=== PATIENT | female | born 1965 | race Caucasian/White ===

== ENCOUNTER 2017-08-11 09:33 | Emergency (ER) | payer BC, OTHER ==
[~2017-08-11] VITALS: Ht 154.9 cm; Wt 126.0 kg
[~2017-08-11 09:33] MED LIST: AZIT250T94 PO; HYDR-3498 PO; IBUP-1542 PO; IBUP800T25 PO; NPH10OT RIGHT EAR; UDPVCC PO; theraflu; tylenol
[2017-08-11 09:44] VITALS: Ht 154.9 cm; Wt 126.0 kg
[2017-08-11 11:58] LABS: ADD UMIC YES; UR ASCORBIC ACID NEGATIVE (NEGATIVE); UR BACTERIA FEW /HPF (NONE SEEN); UR BILIRUBIN (Dip) NEGATIVE (NEGATIVE); UR BLOOD (Dip) 1+ mg/dL (NEGATIVE); UR CLARITY CLEAR (CLEAR); UR COLOR YELLOW (YELLOW); UR GLUCOSE (Dip) NEGATIVE (NEGATIVE); UR KETONES (Dip) NEGATIVE (NEGATIVE); UR LEUKOCYTE ESTERASE (Dip) 1+ Leu/ul (NEGATIVE); UR NITRITE (Dip) POSITIVE (NEGATIVE); UR RBC 2 /HPF (0-5); UR SPECIFIC GRAVITY (Dip) 1.019 (1.003-1.030); UR TOTAL PROTEIN (Dip) NEGATIVE (NEGATIVE); UR UROBILINOGEN (Dip) NEGATIVE (NEGATIVE)
--- NOTE | 2017-08-11 12:17 | ERD ---
ER Documentation Chief Complaint Chief Complaint LUMP ON NIPPLE, CHEST WALL PAIN, SOB, ABD PAIN, PELVIC PAIN HPI 52-year-old female presents to the emergency department complaining of chest pain, for the last 5 days, reproducible by palpation and movement, constant, dull, 4 out of 10. No palpitations, no shortness of breath. No history of CAD. The patient is also complaining of diffuse, mild pelvic pain, associated with increased urinary frequency and malodorous urine. Denies fevers, chills, no nausea no vomiting. She is also complaining of the right breast pain for the last 6 weeks, located in the areolar area, denies nipple discharge, no history of trauma. ROS All systems reviewed and are negative except as per history of present illness. Medications Home Meds Active Scripts Hydrocodone/Acetaminophen ([place] 5-325 Tablet) 1 Each Tablet, 1 TAB PO Q6H Y for PAIN, #7 TAB Prov:SALVADOR BECK MD 08/11/17 Ciprofloxacin Hcl* (Ciprofloxacin Hcl*) 500 Mg Tablet, 250 MG PO BID for 7 Days , TAB Prov:SALVADOR BECK MD 08/11/17 Neomycin/Polymyxin/Hydrocort* (Cortisporin* Otic) 10 Ml Susp, 4 DROP RIGHT EAR QID for 7 Days, EA Prov:MASSIEL WAGNER DO 12/06/15 Hydrocodone Bit-Acetaminophen* ([place]*) 5-325 Mg Tab, 1 TAB PO Q6 Y for PAIN, # 7 TAB Prov:MASSIEL WAGNER DO 12/06/15 Ibuprofen* (Motrin*) 600 Mg Tab, 600 MG PO Q8, #10 TAB Prov:MASSIEL WAGNER DO 12/06/15 Ibuprofen* (Motrin*) 800 Mg Tab, 800 MG PO Q6H Y for PAIN AND OR ELEVATED TEMP, #30 TAB Prov:PRICILA BRUCE NP 10/28/15 Phenylephrine Qbb-Utjdyjt-Etnbzpbhhfbr* (Promethazine VC Codeine* Syrup) 120 Ml Syrup, 5 ML PO Q6 Y for COUGH, #6 OZ Prov:RASTA PATRICK PA-C 04/11/15 Azithromycin* (Zithromax*) 250 Mg Tablet, 250 MG PO .KEN DIRECTED, #6 TAB TAKE 500 MG (2 TABS) THE FIRST DAY THEN 250 MG (1 TAB) DAYS 2-5 Prov:RASTA PATRICK PA-C 04/11/15 Reported Medications [tylenol] No Conflict Check 09/30/11 [theraflu] No Conflict Check 09/30/11 Allergies Allergies: Coded Allergies: Penicillins (Verified Allergy, Unknown, MINIMAL RASH, 12/06/15) PMhx/Soc History of Surgery: No (removal of abdominal tumor) Anesthesia Reaction: No Hx Neurological Disorder: No Hx Respiratory Disorders: Yes (asthma) Hx Cardiac Disorders: Yes (HTN; cardiomegaly) Hx Psychiatric Problems: No Hx Miscellaneous Medical Probl: No Hx Alcohol Use: No Hx Substance Use: No Hx Tobacco Use: No Physical Exam Vitals Vital Signs Date Time Temp Pulse Resp B/P Pulse Ox O2 Delivery O2 Flow Rate FiO2 08/11/17 09:44 98.5 81 16 152/77 93 Physical Exam Head: Atraumatic Eyes: Normal Conjunctiva ENT: Normal External Ears, Nose and Mouth. Neck: Full range of motion..~ No meningismus. Resp: Clear to auscultation bilaterally Breast: Right breast with retroareolar induration, and tenderness with palpation. No nipple discharge, no skin discoloration, no masses. Left breast: Normal skin, no nipple discharge, no masses Cardio: Regular rate and rhythm, no murmurs. Chest wall tenderness over the left side Abd: Soft, non tender Results 24 hrs Laboratory Tests Test 08/11/17 11:20 Urine Color YELLOW Urine Clarity CLEAR Urine pH 5.0 Urine Specific Addy 1.019 Urine Ketones NEGATIVEmg/dL Urine Nitrite POSITIVEmg/dL Urine Bilirubin NEGATIVEmg/dL Urine Urobilinogen NEGATIVEmg/dL Urine Leukocyte Esterase 1+Karen/ul Urine Microscopic RBC 2/HPF Urine Microscopic WBC 20/HPF Urine Bacteria FEW/HPF Urine Hemoglobin 1+mg/dL Urine Glucose NEGATIVEmg/dL Urine Total Protein NEGATIVEmg/dl Procedures/MDM 52-year-old female with multiple medical problems presents with: 1. Chest pain: No suspicion for acute coronary event, electrocardiogram was requested that showed normal sinus rhythm, normal intervals, no ST elevations, no T-wave inversion. CXR: Prominent cardiac silhouette and mild vascular congestion. The pain is reproducible by palpation and movement, most likely musculoskeletal. 2. Abdominal pain: Differential diagnoses includes appendicitis, colitis, UTI, diverticulitis. Physical examination showed a benign abdomen without peritoneal signs, no suspicion for acute abdomen. UA consistent with urinary tract infection without pyelonephritis. 3. Breast pain: Breast US: Prelim report: 0.5 cm hand leather trimmer benign at 9:00 position rest is neg. Results and medical impression discussed with patient, the patient will be DC home with a Rx for antibiotics for UTI and 3 days supply of [place] for pain. If symptoms persist, worsen or new symptoms develop, then patient is instructed to follow-up with the primary care provider. If the patient is unable to see the primary care provider, then return to the ED as needed. Departure Diagnosis: Primary Impression: UTI (urinary tract infection) Additional Impression: Breast pain in female Condition: Stable Patient Instructions: Breast Exam, Clinical, Understanding Urinary Tract Infections (UTIs) Additional Instructions: Thank you very much for allowing us to participate in your care. It was a pleasure seen you today here at [facility]. Please schedule a follow up appointment with your primary doctor in 2 days and bring all the information and prescriptions that we have given to you today. If the doctor is unavailable and the symptoms persist or worsen, the patient should return to the hospital immediately. SALVADOR BECK MD Aug 11, 2017 12:16
[2017-08-11] MEDS ORDERED: CIPR500T4 PO (13:34)
[2017-08-11] MEDS ORDERED: HYDR-906 PO (13:34)
--- NOTE | 2017-08-11 15:31 | RADRPT ---
PROCEDURE: XR Chest. CLINICAL INDICATION: Chest pain. TECHNIQUE: Two views. Frontal and lateral. COMPARISON: 08/28/2013. FINDINGS: There is interstitial disease bilaterally consistent with pulmonary edema. The lungs are otherwise c lear. The heart is enlarged. There is no pleural effusion. There is no pneumothorax. IMPRESSION: 1. Mild pulmonary edema. 2. Cardiomegaly. 3. No change from 08/28/2013. RPTAT: QQ .Husam Clarke MD, MD Date Time Electronically viewed and signed by .Husam Clarke MD, MD on 08/11/2017 15:31 .R/
--- NOTE | 2017-08-11 15:45 | RADRPT ---
PROCEDURE: Right breast ultrasound. CLINICAL INDICATION: Right breast pain. Right nipple induration. TECHNIQUE: High-resolution sonography of the right breast was performed in the axial and sagittal planes. COMPARISON: No prior study is available for comparison. FINDINGS: There is a benign 0.5 cm cystic nodule in the 9 o'clock position of the right breast. There is no ot her cystic or solid mass. Normal breast parenchyma is present. IMPRESSION: 1. Benign 0.5 cm cystic nodule in the 9 o'clock position of the right breast. 2. Otherwise normal right breast ultrasound. 3. Any further management regarding any breast symptoms should be based upon clinical grounds. 4. Mammography is advised. RPTAT: QQ .Husam Clarke MD, MD Date Time Electronically viewed and signed by .Husam Clarke MD, on 08/11/2017 15:45 .R/
== END 2017-08-11 13:46 | disposition home or self-care (01) ==
LOC: FTE 09:33
DX: N39.0 Urinary tract infection, site not specified (principal); N64.4 Mastodynia; J45.909 Unspecified asthma, uncomplicated; I10 Essential (primary) hypertension
CPT/HCPCS: 71020; 76642; 81001; 93005; Z7502

== ENCOUNTER 2018-01-03 16:21 | Emergency (ER) | END 2018-01-03 21:40 | disposition home or self-care (01) ==

== ENCOUNTER 2018-01-15 16:25 | Emergency (ER) | END 2018-01-15 19:33 | disposition home or self-care (01) ==

== ENCOUNTER 2018-07-12 10:05 | Emergency (ER) | END 2018-07-12 12:57 | disposition home or self-care (01) ==

== ENCOUNTER 2018-10-03 23:01 | Emergency (ER) | END 2018-10-04 04:01 | disposition home or self-care (01) ==

== ENCOUNTER 2019-03-07 16:50 | Emergency (ER) | payer OTHER ==
[~2019-03-07] VITALS: Ht 154.9 cm; Wt 120.0 kg
[~2019-03-07 16:50] MED LIST changes: +ACET500C5 PO; +ALBU8.5H8 INH; +AZIT250T PO; -AZIT250T94 PO; +BENZ-6 PO; +CETI10CA PO; +CIPR500T4 PO; +DOXY100T20 PO; +GUAI473L22 PO; +HYDR-4011 PO; +IBUP-1561 PO; -IBUP800T25 PO; +IBUP800T48 PO; +OFLO5DRO7 BOTH EARS; +PRED20TA PO; +PROM6.2515 PO
[2019-03-07 16:55] VITALS: Ht 154.9 cm; Wt 120.0 kg
--- NOTE | 2019-03-07 17:17 | ERD ---
ER Documentation Chief Complaint Chief Complaint SOB X 2 DAYS. HPI The patient is a 53-year-old female, presenting to the ER because of acute on chronic low back pain/constipation and dysuria for 2 days she also complains of somewhat dyspnea for the last 2 days and left heel pain because she has put a lot of weight on her feet. She complains of nausea but no vomiting, denies fever, chills, neck pain, chest pain, abdominal pain, vomiting. She used to smoke but quitted about a month ago, she is able to be on home O2 2 to 3 L co ntinuously but she has not been using it. She smokes marijuana Medical history: Asthma, hypertension, chronic low back pain Past surgical history: Abdominal tumor removed, details unclear ROS All systems reviewed and are negative except as per history of present illness. Medications Home Meds Active Scripts Carisoprodol* (Soma*) 350 Mg Tablet, 350 MG PO TID PRN for MUSCLE SPASMS, #15 TAB Prov:TAMMY STAFFODR MD 03/07/19 Ibuprofen* (Motrin*) 600 Mg Tab, 600 MG PO Q6H PRN for PAIN AND OR ELEVATED TEMP, #30 TAB Prov:TAMMY STAFFORD MD 03/07/19 Reported Medications Lisinopril/Hydrochlorothiazide (Lisinopril-Hctz 20-12.5 mg Tab) 1 Each Tablet, 1 EACH PO DAILY, TAB 03/07/19 Aspirin* (Aspirin* EC) 81 Mg Tablet.dr, 81 MG PO DAILY, TAB 03/07/19 Gemfibrozil* (Gemfibrozil*) 600 Mg Tablet, 600 MG PO BID, TAB 03/07/19 Loratadine* (Loratadine*) 10 Mg Tablet, 10 MG PO DAILY, #30 TAB 03/07/19 Discontinued Reported Medications [tylenol] No Conflict Check 09/30/11 [theraflu] No Conflict Check 09/30/11 Discontinued Scripts Prednisone* (Prednisone*) 20 Mg Tab, 60 MG PO DAILY for 5 Days, TAB Prov:JUSTIN METZGER NP 10/04/18 Benzonatate* (Tessalon Perle*) 100 Mg Capsule, 100 MG PO Q8H PRN for COUGH, #30 CAP Prov:JUSTIN METZGER NP 10/04/18 Albuterol Sulfate* (Proair HFA*) 8.5 Gm Hfa.aer.ad, 2 PUFF INH Q4H PRN for WHEEZING AND SOB, #1 INHALER Prov:JUSTIN METZGER NP 10/04/18 Azithromycin* (Zithromax*) 250 Mg Tablet, 250 MG PO .ZPACK DIRECTED, #6 TAB TAKE 500 MG (2 TABS) THE FIRST DAY THEN 250 MG (1 TAB) DAYS 2-5 Prov:JUSTIN METZGER NP 10/04/18 Promethazine Hcl* (Promethazine Hcl* Syrup) 6.25 Mg/5 Ml Syrup, 6.25 MG PO Q6H PRN for COUGH, #100 ML Prov:JOSELO JOSEPH PA-C 07/12/18 Albuterol Sulfate* (Proair HFA*) 8.5 Gm Hfa.aer.ad, 2 PUFF INH Q4, #1 INHALER Prov:JOSELO JOSEPH PA-C 07/12/18 Doxycycline Hyclate* (Doxycycline Hyclate*) 100 Mg Tablet., 100 MG PO BID for 10 Days, TAB Prov:JOSELO JOSEPH PA-C 07/12/18 Ofloxacin Otic (Ofloxacin Otic) 5 Ml Drops, 10 DROP BOTH EARS BID for 14 Days, #1 BOTTLE Prov:RAYA AGUILAR PA-C 01/15/18 Doxycycline Hyclate* (Doxycycline Hyclate*) 100 Mg Tablet., 100 MG PO BID for 10 Days, TAB Prov:RAYA AGUILAR PA-C 01/15/18 Ibuprofen* (Motrin*) 400 Mg Tab, 400 MG PO Q6H PRN for PAIN AND OR ELEVATED TEMP, #30 TAB Prov:JUSTIN METZGER NP 01/03/18 Acetaminophen* (Tylophen*) 500 Mg Capsule, 1 CAP PO Q6H PRN for PAIN AND OR ELEVATED TEMP, #20 CAP Prov:JUSTIN METZGER NP 01/03/18 Cetirizine Hcl* (Zyrtec*) 10 Mg Capsule, 10 MG PO DAILY, #30 TAB.CHEW Prov:JUSTIN METZGER NP 01/03/18 Guaifenesin-Codeine Phosphate* (Guaifenesin* AC Cough Syrup) 473 Ml Liquid, 10 ML PO Q4H PRN for COUGH, #120 ML Prov:JUSTIN METZGER NP 01/03/18 Azithromycin* (Zithromax*) 250 Mg Tablet, 250 MG PO .ZPACK DIRECTED, #6 TAB TAKE 500 MG (2 TABS) THE FIRST DAY THEN 250 MG (1 TAB) DAYS 2-5 Prov:JUSTIN METZGER NP 01/03/18 Albuterol Sulfate* (Proair HFA*) 8.5 Gm Hfa.aer.ad, 2 PUFF INH Q4H PRN for WHEEZING AND SOB, #1 INHALER Prov:JUSTIN METZGER NP 01/03/18 Hydrocodone/Acetaminophen ([place] 5-325 Tablet) 1 Each Tablet, 1 TAB PO Q6H PRN for PAIN, #7 TAB Prov:SALVADOR BECK MD 08/11/17 Ciprofloxacin Hcl* (Ciprofloxacin Hcl*) 500 Mg Tablet, 250 MG PO BID for 7 Days, TAB Prov:SALVADOR BECK MD 08/11/17 Neomycin/Polymyxin/Hydrocort* (Cortisporin* Otic) 10 Ml Susp, 4 DROP RIGHT EAR QID for 7 Days, EA Prov:MASSIEL WAGNER DO 12/06/15 Hydrocodone Bit-Acetaminophen* ([place]*) 5-325 Mg Tab, 1 TAB PO Q6 PRN for PAIN, #7 TAB Prov:MASSIEL WAGNER DO 12/06/15 Ibuprofen* (Motrin*) 600 Mg Tab, 600 MG PO Q8, #10 TAB Prov:MASSIEL WAGNER DO 12/06/15 Ibuprofen* (Motrin*) 800 Mg Tab, 800 MG PO Q6H PRN for PAIN AND OR ELEVATED TEMP, #30 TAB Prov:PRICILA BRUCE NP 10/28/15 Phenylephrine Jew-Ipvdqon-Seyeidyhfemz* (Promethazine VC Codeine* Syrup) 120 Ml Syrup, 5 ML PO Q6 PRN for COUGH, #6 OZ Prov:RASTA PATRICK PA-C 04/11/15 Azithromycin* (Zithromax*) 250 Mg Tablet, 250 MG PO .ZPACK DIRECTED, #6 TAB TAKE 500 MG (2 TABS) THE FIRST DAY THEN 250 MG (1 TAB) DAYS 2-5 Prov:RASTA PATRICK PA-C 04/11/15 Allergies Allergies: Coded Allergies: Penicillins (Verified Allergy, Unknown, MINIMAL RASH, 03/07/19) PMhx/Soc History of Surgery: No (removal of abdominal tumor) Anesthesia Reaction: No Hx Neurological Disorder: No Hx Respiratory Disorders: Yes (asthma) Hx Cardiac Disorders: Yes (HTN; cardiomegaly) Hx Psychiatric Problems: No Hx Miscellaneous Medical Probl: No Hx Alcohol Use: No Hx Substance Use: Yes (MARIJUANA) Hx Tobacco Use: No Physical Exam Vitals Vital Signs Date Temp Pulse Resp B/P (MAP) Pulse Ox O2 O2 Flow FiO2 Time Delivery Rate 03/07/19 98.4 71 20 126/76 97 Room Air 22:08 (93) 03/07/19 98.1 69 22 134/85 100 Nasal 2.0 18:30 (101) Cannula 03/07/19 2.0 18:09 03/07/19 Nasal 3 17:47 Cannula 03/07/19 97.8 73 22 129/77 96 Nasal 3.0 17:47 (94) Cannula 03/07/19 Nasal 3.0 17:47 Cannula 03/07/19 98.9 76 20 171/79 93 16:55 (109) Physical Exam Const: No acute distress. Head: Atraumatic. Eyes: Normal Conjunctiva. ENT: Normal External Ears, Nose and Mouth. Neck: Full range of motion. No meningismus. Resp: Clear to auscultation bilaterally. Cardio: Regular rate and rhythm. Abd: Soft, non distended, normal bowel sounds, non tender. Skin: No petechiae or rashes. Back: No midline or flank tenderness. Ext: No cyanosis, or edema. Minimal bilateral calf discomfort Neur: Awake and alert. No focal deficit Psych: Normal Mood and Affect. Result Diagram: 03/07/19 1744 03/07/19 1744 Results 24 hrs Laboratory Tests Test 03/07/19 17:44 White Blood Count 10.9 10^3/ul Red Blood Count 4.53 10^6/ul Hemoglobin 13.6 g/dl Hematocrit 41.6 % Mean Corpuscular Volume 91.8 fl Mean Corpuscular Hemoglobin 30.0 pg Mean Corpuscular Hemoglobin Concent 32.7 g/dl Red Cell Distribution Width 13.2 % Platelet Count 249 10^3/UL Mean Platelet Volume 11.2 fl Immature Granulocytes % 0.400 % Neutrophils % 62.3 % Lymphocytes % 27.4 % Monocytes % 6.5 % Eosinophils % 2.8 % Basophils % 0.6 % Nucleated Red Blood Cells % 0.0 /100WBC Immature Granulocytes # 0.040 10^3/ul Neutrophils # 6.8 10^3/ul Lymphocytes # 3.0 10^3/ul Monocytes # 0.7 10^3/ul Eosinophils # 0.3 10^3/ul Basophils # 0.1 10^3/ul Nucleated Red Blood Cells # 0.0 10^3/ul Prothrombin Time 11.9 Sec Prothrombin Time Ratio 0.9 INR International Normalized Ratio 0.87 Activated Partial Thromboplast Time 27.5 Sec D-Dimer 1930.56 ng/ml D-Dimer Comment Sodium Level 143 mmol/L Potassium Level 3.8 mmol/L Chloride Level 108 mmol/L Carbon Dioxide Level 30 mmol/L Anion Gap 5 Blood Urea Nitrogen 17 mg/dl Creatinine 0.73 mg/dl Est Glomerular Filtrat Rate mL/min > 60 mL/min Glucose Level 109 mg/dl Calcium Level 9.2 mg/dl Troponin I < 0.012 ng/ml B-Type Natriuretic Peptide 55 PG/ML Current Medications Medications Dose Sig/Ricky Start Time Status Last (Trade) Ordered Route PRN Stop Time Admin Dose Reason Admin IV Flush 10 ml STK-MED 03/07/19 DC (NS 10 ml) ONCE .ROUTE 19:50 03/07/19 19:51 Sodium 100 ml @ ud STK-MED 03/07/19 DC Chloride ONCE .ROUTE 19:50 03/07/19 19:51 Iohexol 100 ml @ ud STK-MED 03/07/19 DC ONCE .ROUTE 19:50 03/07/19 19:51 Ketorolac 30 mg ONCE STAT 03/07/19 DC 03/07/19 Tromethamine IV 21:58 22:02 (Toradol) 03/07/19 21:59 Procedures/[place] [id number] Radiology Main Line: [phone] DIAGNOSTIC IMAGING REPORT Patient: PRIYANKA BURLESON : 1965 Age: 53 Sex: F [id number] DOS: 03/07/191930 Ordering MD: TAMMY STAFFORD MD Location: E/R Room/Bed: PROCEDURE: CT pulmonary angiogram CLINICAL INDICATION: Chest pain and shortness of breath. TECHNIQUE: CT scan of the chest with contrast was performed on a high- resolution multidetector CT scanner. The patient was scanned following the uncomplicated intravenous administration of 100 cc of Isovue 370. Coronal and sagittal reformatted images were obtained from the axial source images. The total exam CTDI = 20 mGy and DLP = 663 mGy-cm. DICOM images are available. 3-D MIP reconstructions were performed. DICOM images are available. One or more of the following dose reduction techniques were utilized: 1.) Automated exposure control 2.) Adjustment of the mA +/- kV according to patient's size 3.) Use of iterative reconstruction technique. COMPARISON: None FINDINGS: Right lung: Clear. Left lung: Clear. Heart: Normal size. No evidence of pericardial effusion. Mediastinum: No visible mass or lymphadenopathy. Pulmonary arteries: Unremarkable. Thoracic aorta: Unremarkable. Chest wall: Unremarkable for age. Neck base: No visible mass or lymphadenopathy. Upper abdomen: No clinically significant abnormalities. IMPRESSION: 1. No CT evidence of pulmonary embolus. 2. No CT evidence of aortic dissection or aneurysm. 3. No CT evidence of pneumonia or congestive failure. RPTAT:AAJJ Physician Trudy Date Time Electronically viewed and signed by Physician Trudy on 03/07/2019 21:24 GW/ CC: TAMMY STAFFORD MD [id number] [place] [address] Radiology Main Line: [phone] DIAGNOSTIC IMAGING REPORT Patient: PRIYANKA BURLESON : 1965 Age: 53 Sex: F MR #: [id number] DOS: 03/07/19 1724 Ordering MD: TAMMY STAFFORD MD Location: E/R Room/Bed: PROCEDURE: Chest x-ray CLINICAL INDICATION: Shortness of breath TECHNIQUE: Chest single view COMPARISON: 09/24/2018 FINDINGS: There is stable mild cardiomegaly. Prominent bilateral perihilar interstitial markings are again seen which may represent interstitial edema versus chronic change. No confluent pneumonia seen. Costophrenic angles are sharp. Bony thorax is unremarkable. IMPRESSION: 1. Stable mild cardiomegaly. 2. Increased bilateral interstitial markings may represent mild interstitial edema versus chronic change RPTAT: HH .Guille Buenrostro MD, Date Time Electronically viewed and signed by .Guille Buenrostro MD, MD on 03/07/2019 18:20 .W/ CC: TAMMY STAFFORD MD [id number] [place] [address] Radiology Main Line: [phone] DIAGNOSTIC IMAGING REPORT Patient: PRIYANKA BURLESON : 1965 Age: 53 Sex: F MR #: [id number] DOS: 03/07/19 1724 Ordering MD: TAMMY STAFFORD MD Location: E/R Room/Bed: PROCEDURE: US Lower extremity Venous. CLINICAL INDICATION: leg swelling TECHNIQUE: Multiple sonographic images of the bilateral lower extremity deep venous system was obtained utilizing grayscale, color-flow, compressive sonography and doppler imaging with augmentation. The images were reviewed on a PACS workstation. COMPARISON: None. FINDINGS: There is normal compressibility and flow within the bilateral common femoral, femoral, posterior tibial and popliteal veins. IMPRESSION: No sonographic evidence for deep venous thrombosis of the bilateral lower extremities. RPTAT: AA Physician Kirti Date Time Electronically viewed and signed by Physician Kirti on 03/07/2019 18:41 RB/ CC: TAMMY STAFFORD MD [id number] EKG: Read by emergency physician Rate/Rhythm: Normal Sinus Rhythm 77 beats/min QRS, ST, T-waves: No ST elevation, no T inversion, IRBBB Impression: Abnormal EKG MEDICAL MAKING DECISION: The patient is a 53-year-old female, presenting with a cute on chronic low back pain, chronic dyspnea. She was treated with Toradol 30 mg IV for pain with good response, is above outpatient follow-up The differential diagnoses for acute/chronic back pain considered include but are not limited to caudal equina syndrome, spinal abscess, DJD, diskitis, lumbar radiculopathy. The differential diagnoses for acute/chronic dyspnea considered include but are not limited to asthma, COPD, pneumonia, pulmonary embolus, pleural effusion, congestive heart failure. Departure Diagnosis: Primary Impression: Back pain Additional Impression: Dyspnea Condition: Good Comments She was discharged with Motrin and Soma I discussed the findings with the patient. I advised the patient to follow-up with the primary physician in about 2-3 days, sooner if needed and return if any concern. Disclaimer: Inadvertent spelling and grammatical errors are likely due to EHR/dictation software use and do not reflect on the overall quality of patient care. Also, please note that the electronic time recorded on this note does not necessarily reflect the actual time of the patient encounter. TAMMY STAFFORD MD March 07, 2019 17:16
[2019-03-07] MEDS ORDERED: GEMF600T8 PO (17:47)
[2019-03-07] MEDS ORDERED: LORA10TA3 PO (17:47)
[2019-03-07] MEDS ORDERED: ASPI-817 PO (17:47)
[2019-03-07] MEDS ORDERED: LISI1TAB6 PO (17:48)
[2019-03-07] MEDS ORDERED: IOHEXOL 100 ML ONE (19:50)
[2019-03-07] MEDS ORDERED: SOD CHLORIDE 0.9% 100 ML ONE (19:50)
[2019-03-07] MEDS ORDERED: KETOROLAC 30 MG INJ IV STA (21:58)
[2019-03-07] MEDS ORDERED: CARI350T PO (21:59)
[2019-03-07] MEDS ORDERED: IBUP-1542 PO (21:59)
[2019-03-07 22:08] VITALS: BP 126/76; PULSE 71; RESP 20
== END 2019-03-07 22:10 | disposition home or self-care (01) ==
LOC: E/R 16:50
DX: M54.5 Low back pain (principal); R06.00 Dyspnea, unspecified; J45.909 Unspecified asthma, uncomplicated; I10 Essential (primary) hypertension; R06.02 Shortness of breath; Z79.82 Long term (current) use of aspirin
CPT/HCPCS: 36415; 71045; 71275; 80048; 83880; 84484; 85025; 85378; 85610; 85730; 93005; 93970; 96374; J1885; Q9967; Z7502; Z7610

== ENCOUNTER 2019-08-20 12:22 | Inpatient (IN) | payer OTHER ==
[~2019-08-20] VITALS: Ht 154.9 cm; Wt 130.0 kg
[~2019-08-20 12:22] MED LIST changes: -ACET500C5 PO; -ALBU8.5H8 INH; +ASPI-817 PO; -AZIT250T PO; -BENZ-6 PO; +CARI350T PO; -CETI10CA PO; -DOXY100T20 PO; +GEMF600T8 PO; -GUAI473L22 PO; -HYDR-3498 PO; -HYDR-4011 PO; -IBUP-1561 PO; -IBUP800T48 PO; +LISI1TAB23 PO; +LORA10TA3 PO; +METR-122 PO; -NPH10OT RIGHT EAR; -OFLO5DRO7 BOTH EARS; -PRED20TA PO; -PROM6.2515 PO; -UDPVCC PO; -theraflu; -tylenol
[2019-08-20] MEDS ORDERED: ONDANSETRON 4 MG INJ IV STA (14:37)
[2019-08-20] MEDS ORDERED: SOD CHLORIDE 0.9% 1,000 ML IV STA (14:37)
[2019-08-20] MEDS ORDERED: morphine 4 MG/ML VIAL IV STA (14:37)
[2019-08-20] MEDS ORDERED: IOHEXOL 300MG/ML 150 ML BTL ONE (15:43)
[2019-08-20] MEDS ORDERED: SOD CHLORIDE 0.9% 100 ML ONE (15:43)
[2019-08-20] MEDS ORDERED: metroNIDAZOLE 500 MG/NS (PMX) 100 ML IVPB ONE (17:00)
[2019-08-20] MEDS ORDERED: CIPROFLOXACIN 400MG/D5W 200 ML IVPB ONE (17:00)
[2019-08-20] MEDS ORDERED: ONDANSETRON 4 MG INJ IV PRN ×2 (19:00→19:30)
[2019-08-20] MEDS ORDERED: ACETAMINOPHEN 325 MG TAB PO PRN (19:00)
[2019-08-20] MEDS ORDERED: morphine 2 MG INJ IV PRN (19:30)
[2019-08-20 21:03] VITALS: Ht 154.9 cm; Wt 130.0 kg
[2019-08-20 21:30] VITALS: BP 120/55; PULSE 66; RESP 18
[2019-08-20] MEDS: PANTOPRAZOLE 40 MG INJ IV SCH (21:37)
[2019-08-20] MEDS: DEXTROSE 5%-0.45% NACL 1,000 ML IV SCH (21:37)
[2019-08-21] MEDS: CIPROFLOXACIN 400MG/D5W 200 ML IVPB SCH ×2 (00:29→10:13)
[2019-08-21 02:00] VITALS: BP 113/59; PULSE 78; RESP 18
[2019-08-21] MEDS: metroNIDAZOLE 500 MG/NS (PMX) 100 ML IVPB SCH ×2 (05:50→14:08)
[2019-08-21] MEDS: DEXTROSE 5%-0.45% NACL 1,000 ML IV SCH ×2 (07:05→14:08)
[2019-08-21 08:34] VITALS: BP 126/67; PULSE 68; RESP 16
[2019-08-21] MEDS ORDERED: LISINOPRIL 20 MG TAB PO SCH (09:00)
[2019-08-21] MEDS ORDERED: HYDROCHLOROTHIAZIDE 12.5 MG CAP PO SCH (09:00)
[2019-08-21] MEDS: PANTOPRAZOLE 40 MG INJ IV SCH (10:13)
[2019-08-21 14:20] VITALS: BP 141/73; PULSE 68; RESP 18
== END 2019-08-21 16:15 | disposition home or self-care (01) | DRG 392 ==
LOC: E/R 12:22 → 5EC 18:37
PROVIDERS: ADMIT Internal Medicine; ATTEND Internal Medicine
DX: K52.9 Noninfective gastroenteritis and colitis, unspecified (principal); Z68.43 Body mass index [BMI] 50.0-59.9, adult; J45.909 Unspecified asthma, uncomplicated; I10 Essential (primary) hypertension; F17.200 Nicotine dependence, unspecified, uncomplicated; E66.01 Morbid (severe) obesity due to excess calories; Z88.0 Allergy status to penicillin
CPT/HCPCS: 36415; 74177; 80053; 81001; 83690; 85025; 96374; 96375; C9113; J0744; J2270; J2405; J7030; J7042; Q9967